=== PATIENT | female | born 1995 ===

== ENCOUNTER 2018-01-22 20:00 | Emergency (ER) | payer OTHER ==
[2018-01-22 20:15] VITALS: BP 128/81
[2018-01-22] MEDS ORDERED: Sulfamethox/Trimethoprim DS 800/160* TAB PO ONE ×2 (20:54→20:55)
[2018-01-22] MEDS ORDERED: Phenazopyridine TAB* 100 MG PO ONE (20:55)
--- NOTE | 2018-01-22 20:59 | UC ---
Zulma Angeles Rebecca, scribed for Dave Garvey MD on 01/22/18 at 2050 . Complaint Female HPI - HPI Summary HPI Summary: Pt is a 22 y/o F who presents to [facility] c/o dysuria. Sx have been present for 2 days, worse today. Pain is described as stinging. Sx aggravated by urinating, alleviated by nothing. Additionally notes mild sore throat for about 1 month. Throat has been evaluated multiple times by her PCP and has been using cough syrup. Denies back pain, fever, chills, vaginal discharge, diarrhea, constipation. PMHx UTIs for which she had similar symptoms. Believes she is typically put on Macrobid, but she is unsure. MP January 04. - History Of Current Complaint Chief Complaint: UCGU Stated Complaint: POSS UTI Time Seen by Provider: 01/22/18 20:44 Hx Obtained From: Patient Onset/Duration: Lasting Days - 2 days, Still Present, Worse Since - today Severity Currently: Moderate Pain Intensity: 6 Pain Scale Used: 0-10 Numeric Character: Burning Aggravating Factor(s): Urination Alleviating Factor(s): Nothing Associated Signs And Symptoms: Negative: Back Pain, Vaginal Discharge Related Hx: Similar Episode/Dx as: - Prior UTIs - Allergies/Home Medications Allergies/Adverse Reactions: Allergies Allergy/AdvReac Type Severity Reaction Status Date / Time No Known Allergies Allergy Verified 01/22/18 20:16 PMH/Surg Hx/FS Hx/Imm Hx - Additional Past Medical History Additional PMH: PMHx: UTIs NEGATIVE PMHx: HTN, CAD, DM - Surgical History Surgical History: None - Family History Known Family History: Negative: Cardiac Disease, Hypertension, Diabetes - Social History Alcohol Use: Weekly Substance Use Type: None Smoking Status (MU): Never Smoked Tobacco Review of Systems Constitutional: Negative Skin: Negative Eyes: Negative ENT: Sore Throat Respiratory: Negative Cardiovascular: Negative Gastrointestinal: Negative Genitourinary: Dysuria Motor: Negative Neurovascular: Negative Musculoskeletal: Negative Neurological: Negative Psychological: Negative All Other Systems Reviewed And Are Negative: Yes - Comments Additional Review of Systems Comments: NEGATIVE: Back pain, fever, chills, vaginal discharge, diarrhea, constipation Physical Exam - Summary Physical Exam Summary: General: well-appearing, no pain distress Skin: warm, color reflects adequate perfusion, dry Head: normal Eyes: EOMI, DAMIAN ENT: normal Neck: supple, nontender Respiratory: CTA, breath sounds present Cardiovascular: RRR Abdomen: soft, nontender Bowel: present Musculoskeletal: normal, strength/ROM intact Neurological: sensory/motor intact, A&O x3 Psychological: affect/mood appropriate Triage Information Reviewed: Yes Vital Signs: Initial Vital Signs Temp 98.7 F 01/22/18 20:10 Pulse 87 01/22/18 20:10 Resp 16 01/22/18 20:10 BP 128/81 01/22/18 20:10 Pulse Ox 100 01/22/18 20:10 Vital Signs Reviewed: Yes Complaint Female Dx - Course Course Of Treatment: NO FLANK/ABD PAIN. NO ABNORMAL VAGINAL DISCHARGE. - Differential Dx/Diagnosis Provider Diagnoses: UTI Discharge - Sign-Out/Discharge Documenting (check all that apply): Discharge/Admit/Transfer - Discharge - Discharge Plan Condition: Stable Disposition: HOME Prescriptions: Phenazopyridine 200 mg (NF) [Pyridium 200 MG tab *] 200 mg PO TID PRN #10 tab PRN Reason: Pain Sulfamethox/Trimethoprim DS* [Bactrim DS 800/160 TAB*] 1 tab PO BID #20 tab Patient Education Materials: Urinary Tract Infection in Women (ED) Referrals: [facility] [Outside] Additional Instructions: FOLLOW UP WITH YOUR DOCTOR IF NOT COMPLETELY IMPROVED. GET RECHECKED FOR ANY WORSENING OF YOUR CONDITION; FEVER, YOU FEEL ILL OR QUESTIONS OR CONCERNS. - Billing Disposition and Condition Condition: STABLE Disposition: HOME The documentation as recorded by the Zulma mac Rebecca accurately reflects the service I personally performed and the decisions made by me, Dave Garvey MD.
== END 2018-01-22 21:00 | disposition home or self-care (01) ==
LOC: UCEAST 20:00
DX: N39.0 Urinary tract infection, site not specified (principal); Z87.440 Personal history of urinary (tract) infections; J02.9 Acute pharyngitis, unspecified
CPT/HCPCS: 81003; 84702; 87077; 87086; 87186; 99202; A9270-GY; G0463